=== PATIENT | male | born 1980 | race Caucasian/White ===

== ENCOUNTER 2017-11-04 22:37 | Emergency (ER) | payer BC, OTHER ==
[~2017-11-04] VITALS: Ht 177.8 cm; Wt 116.5 kg
[~2017-11-04 22:37] MED LIST: PRLSR20 PO
[2017-11-04 22:40] VITALS: TEMP 37.1; Ht 177.8 cm; Wt 116.5 kg
[2017-11-04] MEDS ORDERED: SODIUM CHLORIDE 0.9% 1000ML 1,000 ML IV STA (22:55)
--- NOTE | 2017-11-04 23:00 | EMERGENCY ROOM VISIT NOTE ---
History Report prepared by Larisa: Dorys Collins Under the Supervision of: Dr. Jason Cochran M.D. First contact with patient: 22:48 Chief Complaint: LEG PAIN,LEG INJURY Stated Complaint: BILATERAL LEG PAIN, RIB INJURY History of Present Illness The patient is a 37 year old male who presents to the Emergency Room with complaints of worsening leg pain that started yesterday. The patient reports that he was playing basketball when he was elbowed in his right upper flank area. He notes that he works out regularly and just recently started getting back into basketball. The patient notes that after he was elbowed, his upper chest hurt and his pain gradually traveled down his whole body. He reports that his biceps hurt, his calves sometimes cramp, and it is painful to stand. He noted that he doesn't think he hurt his back, but he sat the entire day at work and worked in a [employer] shop the rest of the night, which have contributed to his overall pain. He currently rates his pain an 8/10. The patient states that he took some Tylenol earlier for his symptoms. Source of History: patient Onset: yesterday Position: leg (bilateral) Symptom Intensity: 8/10 Quality: other (pain) Timing: worsening Associated Symptoms: + chest pain, No headache Note: Additional symptoms: biceps pain, calf cramps, difficulty standing. Review of Systems See HPI for pertinent positives & negatives. A total of 10 systems reviewed and were otherwise negative. Family History FHx: diabetes mellitus Heart disease Social History Smoking Status: Never Smoker Marital Status: Occupation Status: employed Current/Historical Medications Scheduled Omeprazole (Prilosec), 20 MG PO DAILY Allergies Coded Allergies: Penicillins (Verified Allergy, Unknown, unkn, 11/04/17) Cefaclor (Verified Adverse Reaction, Mild, GI UPSET, 11/04/17) Erythromycin (Verified Adverse Reaction, Mild, gi upset, 11/04/17) Physical Exam Vital Signs Date Time Temp Pulse Resp B/P (MAP) Pulse Ox O2 Delivery O2 Flow Rate FiO2 11/05/17 01:16 77 16 125/88 99 11/05/17 00:40 80 16 121/81 98 Room Air 11/04/17 22:40 37.1 89 16 143/94 99 Room Air Physical Exam GENERAL: Awake, alert, well-appearing, in no acute distress HENT: Normocephalic, atraumatic. Oropharynx unremarkable. EYES: Normal conjunctiva. Sclera non-icteric. NECK: Supple. No nuchal rigidity. FROM. No JVD. RESPIRATORY: Clear to auscultation. CARDIAC: Regular rate, normal rhythm. Extremities warm and well perfused. Pulses equal. ABDOMEN: Soft, non-distended. No tenderness to palpation. No rebound or guarding. No masses. RECTAL: Deferred. MUSCULOSKELETAL: Chest examination reveals no tenderness. The back is symmetrical on inspection without obvious abnormality. There is no CVA tenderness to palpation. No joint edema. LOWER EXTREMITIES: Calves are equal size bilaterally and non-tender. No edema. No discoloration. NEURO: Normal sensorium. No sensory or motor deficits noted. SKIN: No rash or jaundice noted. Medical Decision & Procedures ER Provider Diagnostic Interpretation: Radiology results as stated below per my review and radiologist interpretation: R RIBS UNILATERAL WITH PA CHEST CLINICAL HISTORY: Right-sided chest pain COMPARISON STUDY: No previous studies for comparison. FINDINGS: The erect chest reveals no pneumothorax. There is no focal pulmonary consolidation. No pleural effusions are visualized. No rib fractures are visualized. IMPRESSION: No evidence of pneumothorax. No right-sided rib fractures are visualized. Electronically signed by: Ray Astudilol M.D. 11/05/2017 6:59 AM Dictated Date/Time: 11/05/2017 6:58 AM Laboratory Results 11/04/17 23:10 Red Blood Count 5.05, Mean Corpuscular Volume 82.0, Mean Corpuscular Hemoglobin 28.1, Mean Corpuscular Hemoglobin Concent 34.3, Mean Platelet Volume 11.2, Neutrophils (%) (Auto) 68.3, Lymphocytes (%) (Auto) 23.6, Monocytes (%) (Auto) 6.1, Eosinophils (%) (Auto) 1.6, Basophils (%) (Auto) 0.2, Neutrophils # (Auto) 3.45, Lymphocytes # (Auto) 1.19, Monocytes # (Auto) 0.31, Eosinophils # (Auto) 0.08, Basophils # (Auto) 0.01 11/04/17 23:10 Test 11/04/17 23:10 11/04/17 23:13 11/04/17 23:14 11/04/17 23:30 White Blood Count 5.05 K/uL (4.8-10.8) Red Blood Count 5.05 M/uL (4.7-6.1) Hemoglobin 14.2 g/dL (14.0-18.0) Hematocrit 41.4 % (42-52) Mean Corpuscular Volume 82.0 fL (80-100) Mean Corpuscular Hemoglobin 28.1 pg (25-34) Mean Corpuscular Hemoglobin Concent 34.3 g/dl (32-36) Platelet Count 186 K/uL (130-400) Mean Platelet Volume 11.2 fL (7.4-10.4) Neutrophils (%) (Auto) 68.3 % Lymphocytes (%) (Auto) 23.6 % Monocytes (%) (Auto) 6.1 % Eosinophils (%) (Auto) 1.6 % Basophils (%) (Auto) 0.2 % Neutrophils # (Auto) 3.45 K/uL (1.4-6.5) Lymphocytes # (Auto) 1.19 K/uL (1.2-3.4) Monocytes # (Auto) 0.31 K/uL (0.11-0.59) Eosinophils # (Auto) 0.08 K/uL (0-0.5) Basophils # (Auto) 0.01 K/uL (0-0.2) RDW Standard Deviation 38.5 fL (36.4-46.3) RDW Coefficient of Variation 12.9 % (11.5-14.5) Immature Granulocyte % (Auto) 0.2 % Immature Granulocyte # (Auto) 0.01 K/uL (0.00-0.02) Est Creatinine Clear Calc Drug Dose 140.4 ml/min Estimated GFR () 122.0 Estimated GFR (Non- 105.2 BUN/Creatinine Ratio 18.3 (10-20) Calcium Level 8.4 mg/dl (8.5-10.1) Total Bilirubin 0.3 mg/dl (0.2-1) Direct Bilirubin < 0.1 mg/dl (0-0.2) Aspartate Amino Transf (AST/SGOT) 27 U/L (15-37) Alanine Aminotransferase (ALT/SGPT) 54 U/L (12-78) Alkaline Phosphatase 78 U/L (45-117) Total Creatine Kinase 238 U/L (39-308) Total Protein 7.9 gm/dl (6.4-8.2) Albumin 4.0 gm/dl (3.4-5.0) Lipase 215 U/L (73-393) Lyme Disease IgG Antibody NEG (NEG) Lyme Disease IgM Antibody NEG (NEG) Bedside D-Dimer 400 ng/mlFEU (0-450) Bedside Hemoglobin 14.6 g/dl (14.0-18.0) Bedside Hematocrit 43 % (42-52) Bedside Sodium 141 mEq/L (135-144) Bedside Potassium 3.7 mEq/L (3.3-5.0) Bedside Chloride 103 mEq/L (101-112) Bedside Total CO2 25 mEq/l (24-31) Anion Gap 18.0 mmol/L (16-25) Bedside Blood Urea Nitrogen 18 mg/dl (7-18) Bedside Creatinine 0.8 mg/dl (0.6-1.3) Bedside Glucose (other) 125 mg/dl (70-99) Bedside Ionized Calcium ([place]say) 1.22 mmol/l (1.12-1.32) Urine Color YELLOW Urine Appearance CLEAR (CLEAR) Urine pH 6.5 (4.5-7.5) Urine Specific [place] 1.025 (1.000-1.030) Urine Protein NEG (NEG) Urine Glucose (UA) NEG (NEG) Urine Ketones NEG (NEG) Urine Occult Blood NEG (NEG) Urine Nitrite NEG (NEG) Urine Bilirubin NEG (NEG) Urine Urobilinogen NEG (NEG) Urine Leukocyte Esterase NEG (NEG) Labs reviewed by ED physician. Medications Administered Medications (Trade) Dose Ordered Sig/Ferdinand Route Start Time Stop Time Status Last Admin Dose Admin Sodium Chloride 1,000 ml @ 999 mls/hr Q1H1M STAT IV 11/04/17 22:55 11/04/17 23:55 DC 11/04/17 23:20 999 MLS/HR ED Course 2250: Past medical records reviewed. The patient was evaluated in room B5. A complete history and physical examination was performed. [id number]: Upon reexamination the patient is resting. I discussed results and treatment plan with the patient. He verbalizes agreement and understanding. The patient is ready for discharge. Medical Decision This is a 37-year-old male who presents the emergency department complaining of muscle and leg pain after a basketball game during a period of high volume and high acuity during single provider coverage. The patient also reports he was elbowed into the armpit. Using shared medical decision making with the patient patient is concerned about a blood clot so I offered a d-dimer test. I also recommended a CK test. The patient was sent for CBC renal profile liver profile. He would also like a Lyme anaplasmosis and Ehrlichia test. His d- dimer is also normal. The patient was given a normal saline bolus as well as Toradol. Repeat examination revealed improvement in the patient's symptoms. As the patient's electrolytes CBC CK d-dimer are all relatively normal I believe he can be safely discharged home. The patient's rib series was interpreted by me does not show any evidence of fracture. Strongly encouraged patient follow-up with his primary care physician. Patient was in agreement with the treatment plan. Medication Reconcilliation Current Medication List: was personally reviewed by me Blood Pressure Screening Patient's blood pressure: Normal blood pressure Impression Primary Impression: Bilateral leg pain Scribe Attestation The scribe's documentation has been prepared under my direction and personally reviewed by me in its entirety. I confirm that the note above accurately reflects all work, treatment, procedures, and medical decision making performed by me. Departure Information Dispostion Home / Self-Care Referrals Jamaal Kolb MD (PCP) Forms HOME CARE DOCUMENTATION FORM, IMPORTANT VISIT INFORMATION Patient Instructions My [facility] Additional Instructions Increase fluids next 48 hours Take 600 mg Ibuprofen every 6 hours Take 1000 mg Tylenol every 6 hours You have been examined and treated today on an emergency basis only. This is not a substitute for, or an effort to provide, complete comprehensive medical care. It is impossible to recognize and treat all injuries or illnesses in a single emergency department visit. It is therefore important that you follow up closely with Dr Kolb. Call as soon as possible for an appointment. Thank you for your time and consideration. I look forward to speaking with you again soon. Please don't hesitate to call us if you have any questions.
[2017-11-04 23:26] LABS: ISTAT CREATININE 0.8 mg/dl (0.6-1.3); ISTAT IONIZED CALCIUM 1.22 mmol/l (1.12-1.32); ISTAT POTASSIUM 3.7 mEq/L (3.3-5.0)
[2017-11-04 23:51] LABS: ALKALINE PHOSPHATASE 78 U/L (45-117); ALT/SGPT 54 U/L (12-78); AST/SGOT 27 U/L (15-37); BLOOD UREA NITROGEN 17 mg/dl (7-18); CALCIUM 8.4 mg/dl (8.5-10.1); CARBON DIOXIDE 25 mmol/L (21-32); CREATININE 0.93 mg/dl (0.60-1.40); GLUCOSE 119 mg/dl (70-99); LIPASE 215 U/L (73-393); POTASSIUM 3.7 mmol/L (3.5-5.1); SODIUM 139 mmol/L (136-145); TOTAL PROTEIN 7.9 gm/dl (6.4-8.2)
[2017-11-05 00:22] LABS: BASO % 0.2 %; BASO ABS # 0.01 K/uL (0-0.2); EOS % 1.6 %; EOS ABS # 0.08 K/uL (0-0.5); HEMATOCRIT 41.4 % (42-52); HEMOGLOBIN 14.2 g/dL (14.0-18.0); IG# 0.01 K/uL (0.00-0.02); LYMPH % 23.6 %; LYMPH ABS # 1.19 K/uL (1.2-3.4); MEAN CORPUSCULAR HEMOGLOBIN 28.1 pg (25-34); MEAN CORPUSCULAR HGB CONC 34.3 g/dl (32-36); MEAN PLATELET VOLUME 11.2 fL (7.4-10.4); MONO % 6.1 %; MONO ABS # 0.31 K/uL (0.11-0.59); NEUT % 68.3 %; NEUT ABS # 3.45 K/uL (1.4-6.5); PLATELET COUNT 186 K/uL (130-400); RED CELL DISTRIBUTION WIDTH CV 12.9 % (11.5-14.5); RED CELL DISTRIBUTION WIDTH SD 38.5 fL (36.4-46.3); WHITE BLOOD COUNT 5.05 K/uL (4.8-10.8)
[2017-11-05 01:16] VITALS: BP 125/88; PULSE 77; O2SAT 99
--- NOTE | 2017-11-05 07:00 | DIAGNOSTIC IMAGING REPORT ---
R RIBS UNILATERAL WITH PA CHEST CLINICAL HISTORY: Right-sided chest pain COMPARISON STUDY: No previous studies for comparison. FINDINGS: The erect chest reveals no pneumothorax. There is no focal pulmonary consolidation. No pleural effusions are visualized. No rib fractures are visualized. IMPRESSION: No evidence of pneumothorax. No right-sided rib fractures are visualized. Electronically signed by: Ray Astudillo M.D. 11/05/2017 6:59 AM Dictated Date/Time: 11/05/2017 6:58 AM
--- NOTE | 2017-11-07 21:56 | Pharmacy Progress Note ---
ED Pharmacist Culture FollowUp Date of Service: Nov 07, 2017. Background Group A beta Strep isolated from throat culture. Patient was seen here for leg pain and no sore throat, fever, headache, or nausea was documented. Therefore possible that patient is an asymptomatic carrier. Spoke extensively with patient for about 15 minutes. He reports being recently treated for Strep throat with a Z-pac and that his sore throat symptoms did improve slightly but did not completely resolve. Patient reports that the muscle pain he was noting while here may be more of generalized body ache as compared to pain in specific muscle groups. Patient reports that he is not worse now than when he was seen here. He notes that he believes his PCP has prescribed amoxicillin in the past, but is unsure. Patient is unsure of reaction history to penicillin but believes he had hives as a child. He noted intent to contact his mom to obtain additional information. Patient notes he has an appointment with PCP tomorrow (11/08) @ 0900. Assessment Patient may have an isolate of Group A Strep that is resistant to azithromycin as resistance to azithromycin is increasing. This would explain why his initial symptoms did not completely resolve and why he is once again getting worse. Group A Strep is nearly always sensitive to penicillin, however, this was likely avoided in this patient 2nd reported history of penicillin allergy. Patient may be able to tolerate amoxicillin as he thinks he has tolerated this in the past. Because patient is no worse and he has an appointment tomorrow AM with his PCP who may have additional information as to patient antibiotic history, plan is to have PCP determine best antibiotic for patient. Plan * No antibiotic from ED for now * Patient to follow up with PCP tomorrow AM, notify of Group A Strep result, and request confirmation of antibiotic prescription history * Patient to follow up with his mom and request additional information on previous allergic reaction to penicillin in childhood * Return to ED for worsening symptoms Patient acknowledged understanding of plan. Case discussed with Dr. New.
== END 2017-11-05 01:16 | disposition home or self-care (01) ==
LOC: C.EDB 22:38
DX: M79.604 Pain in right leg (principal); M79.605 Pain in left leg; Y93.67 Activity, basketball; W51.XXXA Accidental striking against or bumped into by another person, initial encounter; Z83.3 Family history of diabetes mellitus; Z79.899 Other long term (current) drug therapy; Z88.0 Allergy status to penicillin; Z88.1 Allergy status to other antibiotic agents